=== PATIENT | male | born 1985 | race Caucasian/White ===

== ENCOUNTER → 2017-01-16 | Outpatient (CLI) | payer BC ==
[~2017-01-16] MED LIST: AZIT250T5 PO; NO HOME MEDS; bactrim PO
[2017-01-16 16:39] LABS: BASOPHILS % (AUTO) 1 % (0-2); EOSINOPHILS # (AUTO) 0.2 10^3uL; EOSINOPHILS % (AUTO) 3 % (0-4); LYMPHOCYTES # (AUTO) 1.2 X10^3; MEAN CORPUSCULAR HEMOGLOBIN 29.1 PG (26.0-34.0); MEAN CORPUSCULAR HGB CONC 34.4 g/dL (31.0-37.0); MEAN CORPUSCULAR VOLUME 85 FL (80-100); MEAN PLATELET VOLUME 9.8 FL (6.0-9.5); MONOCYTES # (AUTO) 0.7 X10^3; MONOCYTES % (AUTO) 12 % (3-11); NEUTROPHILS # (AUTO) 3.3 X10^3; NEUTROPHILS % (AUTO) 62 % (51-67); PLATELET COUNT 242 10^3uL (150-450); WHITE BLOOD COUNT 5.39 10^3uL (4.0-11.0)
--- NOTE | 2017-01-16 16:44 | Diagnostic Imaging Report ---
INDICATION: Pain in the first and second metatarsal region. FINDINGS: There is no bony erosion. No fracture or dislocation. The alignment is normal. There is no fracture. No foreign body. No soft tissue gas. IMPRESSION: Unremarkable foot radiographs. Dictated by: Dictated on workstation # [id number]
[2017-01-16 17:23] LABS: ERYTHROCYTE SEDIMENTATION RT* 11 mm/hr (0-12)
== END ==
LOC: LAB 16:18
PROVIDERS: ATTEND Family Medicine
DX: M12.872 Other specific arthropathies, not elsewhere classified, left ankle and foot (principal); M10.072 Idiopathic gout, left ankle and foot
CPT/HCPCS: 36415; 84550; 85025; 85652